=== PATIENT | male | born 1980 | race Caucasian/White ===

== ENCOUNTER 2017-05-15 22:07 | Emergency (ER) | payer MEDICAID, OTHER, SELFPAY | END 2017-05-15 23:07 | LOC: ED 22:12 | DX: G89.29 Other chronic pain (principal); M54.5 Low back pain | CPT/HCPCS: 99282 ==

== ENCOUNTER 2017-05-15 22:09 | Emergency (ER) | payer MEDICAID, OTHER, SELFPAY ==
[~2017-05-15] VITALS: Ht 175.3 cm; Wt 70.3 kg
[2017-05-15 22:16] VITALS: BP 156/88
[2017-05-15] MEDS ORDERED: ONDANSETRON ODT 4 MG ONE (22:49)
[2017-05-15] MEDS ORDERED: HYDROmorphone 1 MG/ML, 1ML ONE (22:49)
[2017-05-15] MEDS ORDERED: ONDANSETRON ODT 4 MG PO ONE (23:00)
[2017-05-15] MEDS ORDERED: HYDROmorphone 1 MG/ML, 1ML IM ONE (23:00)
== END 2017-05-15 23:56 | disposition left against medical advice (07) ==
LOC: ED 23:50
DX: M54.5 Low back pain (principal)
CPT/HCPCS: 72110; 99281; J1170